=== PATIENT | female | born 1965 | race Two or more races ===

== ENCOUNTER 2024-11-13 08:51 | Outpatient (CLI) | payer OTHER, MEDICAID | END 2024-11-13 17:00 | disposition home or self-care (01) | LOC: Rad HDHVI 08:51 | PROVIDERS: ATTEND Internal Medicine Cardiovascular Disease | DX: I73.9 Peripheral vascular disease, unspecified (principal); M71.22 Synovial cyst of popliteal space [Baker], left knee | CPT/HCPCS: 93925 ==

== ENCOUNTER 2024-11-14 09:00 | Outpatient (CLI) | payer OTHER, MEDICAID | END 2024-11-14 17:00 | disposition home or self-care (01) | LOC: Rad HDHVI 09:00 | PROVIDERS: ATTEND Internal Medicine Cardiovascular Disease | DX: I07.1 Rheumatic tricuspid insufficiency (principal); I11.9 Hypertensive heart disease without heart failure; I27.20 Pulmonary hypertension, unspecified | CPT/HCPCS: 93306 ==

== ENCOUNTER 2025-01-24 09:15 | Outpatient (CLI) | payer OTHER, MEDICAID ==
[~2025-01-24] VITALS: Ht 162.6 cm; Wt 65.8 kg
[2025-01-24] MEDS ORDERED: ADENOSINE 90 MG/30 ML INJ IV ONE (09:53)
[2025-01-24] MEDS ORDERED: ADENOSINE 55 MG in GIVE UN-DILUTED 0 ML IV ONE (10:00)
== END 2025-01-24 17:00 | disposition home or self-care (01) ==
LOC: Rad HDHVI 09:15
PROVIDERS: ATTEND Internal Medicine Cardiovascular Disease
DX: I49.1 Atrial premature depolarization (principal); I25.10 Atherosclerotic heart disease of native coronary artery without angina pectoris; R07.89 Other chest pain; I10 Essential (primary) hypertension; E11.9 Type 2 diabetes mellitus without complications; I73.9 Peripheral vascular disease, unspecified; R06.02 Shortness of breath; F17.210 Nicotine dependence, cigarettes, uncomplicated; Z82.49 Family history of ischemic heart disease and other diseases of the circulatory system
CPT/HCPCS: 78452; 93017; A9500; J0153

== ENCOUNTER 2025-03-17 10:00 | Outpatient (CLI) | payer OTHER, MEDICAID ==
[~2025-03-17] VITALS: Ht 162.6 cm; Wt 65.3 kg
[2025-03-17 10:10] VITALS: BP 156/78; PULSE 63; RESP 16; O2SAT 93
[2025-03-17 10:30] VITALS: BP 130/60; PULSE 65; RESP 16; O2SAT 94
[2025-03-17] MEDS ORDERED: GABA-1250 PO (13:06)
[2025-03-17] MEDS ORDERED: ASPI-498 OR (13:06)
[2025-03-17] MEDS ORDERED: RIZA10TA12 PO (13:06)
[2025-03-17] MEDS ORDERED: LISI10TA34 PO (13:06)
[2025-03-17] MEDS ORDERED: TRAZ-181 PO (13:06)
[2025-03-17] MEDS ORDERED: MELO15TA29 PO (13:06)
[2025-03-17] MEDS ORDERED: CLOP75TA28 PO (13:06)
[2025-03-17] MEDS ORDERED: CHOL20007 PO (13:06)
[2025-03-17] MEDS ORDERED: CYCL-838 PO (13:06)
[2025-03-17] MEDS ORDERED: MORP15TA PO (13:06)
[2025-03-17] MEDS ORDERED: INSLANTI SC (13:07)
== END 2025-03-17 17:00 | disposition home or self-care (01) ==
LOC: CHF HDHVI 10:00
PROVIDERS: ATTEND Internal Medicine Cardiovascular Disease
DX: Z01.810 Encounter for preprocedural cardiovascular examination (principal); I27.21 Secondary pulmonary arterial hypertension
CPT/HCPCS: 93005; G0463

== ENCOUNTER 2025-03-20 06:38 | Day surgery (SDC) | payer OTHER, MEDICAID ==
[2025-03-17 12:58] LABS: Hematocrit 40.5 % (36.0-46.0); Hemoglobin 13.8 g/dL (12.2-16.2); Mean Corpuscular Hemoglobin 31.0 pg (28.0-32.0); Mean Corpuscular Volume 90.8 fL (80.0-100.0); Nucleated Red Blood Cells % 0.1 %
[2025-03-17 13:10] LABS: INR 0.98 (0.9-1.15); Partial Thromboplastin Time 26.6 SEC (24.5-34.5); Prothrombin Time 10.4 sec (9.3-11.8)
[2025-03-17 13:51] LABS: Chloride 100 mmol/L (98-107); Potassium 4.1 mmol/L (3.5-5.1)
[2025-03-17 13:52] LABS: Anion Gap 9 (5-15); Calcium 9.6 mg/dL (8.7-10.4); Carbon Dioxide 27 mmol/L (20-31)
[2025-03-17 13:53] LABS: Sodium 136 mmol/L (136-145)
[2025-03-17 13:57] LABS: BUN/Creatinine Ratio 12.2 (10.0-20.0)
[2025-03-17 13:58] LABS: Blood Urea Nitrogen 9 mg/dL (9-23); Glucose 139 mg/dL (74-106)
[~2025-03-20] VITALS: Ht 162.6 cm; Wt 65.3 kg
[~2025-03-20 06:38] MED LIST: ASPI-498 OR; CHOL20007 PO; CLOP75TA28 PO; CYCL-838 PO; GABA-1250 PO; INSLANTI SC; LISI10TA34 PO; MELO15TA29 PO; MORP15TA PO; RIZA10TA12 PO; TRAZ-181 PO
[2025-03-20] MEDS ORDERED: IOHEXOL 350 MG/ML 100ML IJ ONE (08:27)
[2025-03-20] MEDS ORDERED: fentaNYL CITRATE 100 MCG/2 ML VL ONE (08:41)
[2025-03-20] MEDS ORDERED: ANGIOMAX 250 MG VIAL IV ONE (08:41)
[2025-03-20] MEDS ORDERED: SODIUM CHL 0.9% 0 ML ONE (08:42)
[2025-03-20] MEDS ORDERED: LIDOCAINE 2%HCL (LOCAL ANESTH.) INJ 20ML MDV ONE (08:42)
[2025-03-20] MEDS ORDERED: MIDAZOLAM HCL 2MG/2ML 2ml VIAL (1mg/ml) ONE (08:42)
--- NOTE | 2025-03-20 10:42 | DVHDS ---
DATE OF DISCHARGE: 03/20/2025 DISCHARGE DIAGNOSES: * Severe pulmonary hypertension. * Normal coronary anatomy. * COPD. * Tobacco use. * Hypertension. HOSPITAL COURSE: The patient at this time is clinically doing well. She has undergone successful left and right heart catheterization, stable at the time of discharge. DISPOSITION: Home. ACTIVITY: As instructed. DIET: 2 g sodium diet. Follow up with me in 1 week and medical management will be implemented once I see her in the clinic. Mark Anthony Goldman MD SA/IZABELA TID: [id number] RECEIPT: [id number]
--- NOTE | 2025-03-20 10:42 | DVHOP ---
DATE OF SURGERY: 03/20/2025 PROCEDURES TO BE PERFORMED: * Selective left and right coronary angiography. * Ventriculogram. * Right iliac angiography. * Right heart catheterization and Sparks-Son catheterization. * Conscious sedation. DESCRIPTION OF PROCEDURE: The patient was prepped and draped under sterile conditions. Xylocaine 1% used to anesthetize the right groin. Using Cook needle, right femoral artery was engaged with Seldinger technique, a 6-Russian sheath in the right femoral artery. Similarly, a 6-Russian sheath was introduced in the right femoral vein. Using 6-Russian balloon-tip thermodilution catheter, right-sided pressure tracings were obtained. Using 6-Russian pigtail catheter, ventriculogram was done. Using 6-Russian JL4 and 6-Russian JR4 catheters, selective left and right coronary angiographies were performed. There were no complications. The patient tolerated the procedure well. Total contrast use was about 50 mL of Optiray. RESULTS: * Left main patent. * Left anterior descending artery without any flow-restrictive lesion. * Circumflex without any flow-restrictive lesion. * Right coronary artery large dominant vessel without any flow-restrictive lesion. * Left ventricular function was preserved with an estimated EF around 50%-55% with an LVEDP of 15-17 mmHg with no gradient across the aortic valve. left ventricular systolic pressure at that time was around 160. * Right heart catheterization Sparks-Son reading shows RA pressure of 15, RV pressure of 79/15, capillary wedge pressure of 15, and PA pressure of 79/10. Thus, the patient with normal coronary anatomy, normal left ventricular ejection fraction. However, the patient has severe pulmonary hypertension consistent with primary pulmonary hypertension. We will continue to manage the patient. The patient does not require any surgical intervention or catheter-based intervention. Will require medical management. Mark Anthony Goldman MD SA/JOHN PAUL TID: [id number] RECEIPT: [id number]
--- NOTE | 2025-03-20 10:44 | DVHHP ---
ADMIT DATE: 03/20/2025 HISTORY OF PRESENT ILLNESS: The patient is 60 years old with history of: * Hypertension. * History of COPD tobacco use. * Currently, she continues to smoke approximately a pack a day. She denies any chest pain or shortness of breath, no PND or orthopnea. She has been having increasing symptoms of dyspnea on exertion, especially with even minimal exertion. She also has lower extremity edema. Echocardiogram shows the patient to have marked elevation in pulmonary pressure. Therefore, she has primary pulmonary hypertension that needs to be evaluated. As part of the treatment protocol, the patient needs left and right heart catheterization. Risks and benefits were explained to the patient. The patient understands and agrees. She denies any fever, chills. No melena, hematochezia, hematemesis, hemoptysis or hematuria. She denies any history of seizure disorder. No history of CVA. No mixed connective tissue disease. No history of irritable bowel syndrome or inflammatory bowel disease. She does have COPD, however, and continues to smoke. She denies any other drug use. FAMILY HISTORY: Negative. SOCIAL HISTORY: No history of alcohol use at this time. PHYSICAL EXAMINATION: VITAL SIGNS: Blood pressure is 137/84, pulse 76, O2 saturation 92% on room air. HEENT: Pupils are reactive. Funduscopic exam shows no AV nicking, no exudates, no papilledema. Sclerae anicteric. Extraocular muscles are intact. Oral mucosa moist. Posterior pharynx without any exudates. NECK: Carotid pulses are 2+ symmetric. JVD about 3 cm above the angle of Tino. No cervical adenopathy. No supraclavicular adenopathy. PULMONARY: Clear to auscultation in all lung miranda. No egophony. No tympany to percussion. CARDIOVASCULAR: Regular rate. There is a parasternal lift, however, and the patient has a 2/6 systolic murmur along the left sternal border. Right-sided PMI is sustained. ABDOMEN: Soft, nontender. Normal bowel sounds. Stool guaiac is negative. Liver approximately 5 cm. No epigastric tenderness. No suprapubic tenderness. No CVA tenderness. EXTREMITIES: Lower extremity 2+ pulses, 2+ edema. NEUROLOGIC: The patient is intact. DTRs are 2+ and symmetrical. Cranial nerves 2 through 12 are within normal limits. Sensory and motor modalities are intact. ASSESSMENT AND PLAN: Thus, the patient with: * COPD. * Continued tobacco use. * Severe pulmonary hypertension. The patient is now to undergo left and right heart catheterization. She is also hypertensive. Mark Anthony Goldman MD SA/[facility] TID: [id number] RECEIPT: [id number]
[2025-03-20] MEDS: HYDROcodone-ACET 5/325MG TAB PO ONE (11:00)
[2025-03-20] MEDS: HYDROcodone-ACET 5/325MG TAB ONE (11:01)
== END 2025-03-20 11:38 | disposition home or self-care (01) ==
LOC: CATH 06:38
PROVIDERS: ATTEND Internal Medicine Cardiovascular Disease
DX: I27.0 Primary pulmonary hypertension (principal); R94.39 Abnormal result of other cardiovascular function study; J44.9 Chronic obstructive pulmonary disease, unspecified; F17.210 Nicotine dependence, cigarettes, uncomplicated; Z79.4 Long term (current) use of insulin; Z79.82 Long term (current) use of aspirin; Z79.899 Other long term (current) drug therapy
CPT/HCPCS: 36415; 80048; 85025; 85610; 85730; 93460; C1760; C1769; C1894; J1644; J2250; J3010; Q9967; 99152

== ENCOUNTER → 2025-06-11 | Outpatient (CLI) | payer OTHER, MEDICAID | END | disposition home or self-care (01) | LOC: Rad HDHVI 10:35 | PROVIDERS: ATTEND Internal Medicine Cardiovascular Disease | DX: I07.1 Rheumatic tricuspid insufficiency (principal); R06.02 Shortness of breath | CPT/HCPCS: 93306 ==